=== PATIENT | female | born 1995 | race Caucasian/White ===

== ENCOUNTER 2018-10-25 03:46 | Emergency (ER) | payer BC, OTHER ==
[2018-10-25] MEDS ORDERED: ONDANSETRON 4 MG/2 ML VIAL ONE (04:44)
[2018-10-25] MEDS ORDERED: KETOROLAC 30 MG/ML INJ ONE (04:44)
[2018-10-25 04:51] LABS: Absolute Monocytes 0.5 K/uL (0.1-1.3); Absolute Neutrophil 2.9 K/uL (1.8-8.0); Basophils % 0.7 % (0-1.3); Eosinophils % 2.2 % (0-4.4); Hematocrit 38.8 % (36.0-45.0); Lymphocytes % 45.6 % (15.3-44.8); MPV 8.8 fL (7.6-11.3); Monocytes % 8.2 % (3.3-12.3); RBC Red Blood Cell Count 4.25 M/uL (3.86-4.86)
[2018-10-25 05:04] LABS: Albumin 3.7 g/dL (3.4-5.0); Bilirubin Direct 0.1 mg/dL (0-0.2); Bilirubin Total 0.4 mg/dL (0.2-1.0); Potassium 3.5 mmol/L (3.5-5.1); Protein, Total 7.9 g/dL (6.4-8.2)
[2018-10-25 06:07] LABS: Urine Blood 2+ (NEG); Urine Glucose NEGATIVE (NEG); Urine Protein 3+ (NEG); Urine Specific Gravity >1.030 (1.005-1.030); Urine pH 5.5 (5.0-7.0)
[2018-10-25 06:11] LABS: Urine Bacteria 20-50 /HPF (<20); Urine Culture Reflex Order REFLEXED
--- NOTE | 2018-10-25 06:48 | ER ---
Nurse's Notes [facility] Name: Sophy Otero Age: 23 yrs Sex: Female : 1995 Arrival Date: 10/25/2018 Time: 03:53 Bed 6 Private MD: out of town, doctor Diagnosis: Calculus of ureter Presentation: 10/25 04:04 Presenting complaint: Patient states: that she is having right mid sided abd pain. fc Denies any nausea, vomiting or diarrhea. Last BM this am at 0245. Has same episode last Monday and it lasted a few hrs and then went away. Transition of care: patient was not received from another setting of care. Onset of symptoms was October 25, 2018 at 02:30. Risk Assessment: Do you want to hurt yourself or someone else? Patient reports no desire to harm self or others. Initial Sepsis Screen: Does the patient meet any 2 criteria? HR > 90 bpm. No. Patient's initial sepsis screen is negative. Does the patient have a suspected source of infection? No. Patient's initial sepsis screen is negative. Care prior to arrival: None. 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 - Social history:: Smoking status: Patient/guardian denies using tobacco, Patient uses alcohol, occasionally. Patient/guardian denies using street drugs. - Ebola Screening: : Patient negative for fever greater than or equal to 101.5 degrees Fahrenheit, and additional compatible Ebola Virus Disease symptoms Patient denies exposure to infectious person Patient denies travel to an Ebola-affected area in the 21 days before illness onset. Screenin:07 Abuse screen: Denies threats or abuse. Nutritional screening: No deficits noted. jd3 Tuberculosis screening: No symptoms or risk factors identified. Fall Risk Ambulatory Aid- None/Bed Rest/Nurse Assist (0 pts). Gait- Normal/Bed Rest/Wheelchair (0 pts) Mental Status- Oriented to own ability (0 pts). Total Rodriguez Fall Scale indicates No Risk (0-24 pts). 04:08 Abuse screen: Denies threats or abuse. Nutritional screening: No deficits noted. fc Tuberculosis screening: No symptoms or risk factors identified. Fall Risk None identified. Assessment: 04:06 General: Appears in no apparent distress. uncomfortable, Behavior is calm, cooperative, jd3 appropriate for age. Pain: Complains of pain in right lower quadrant Pain currently is 9 out of 10 on a pain scale. Quality of pain is described as sharp. Neuro: Level of Consciousness is awake, alert, obeys commands, Oriented to person, place, time, situation, Appropriate for age. Cardiovascular: Capillary refill < 3 seconds Patient's skin is warm and dry. Respiratory: Airway is patent Respiratory effort is even, unlabored, Respiratory pattern is regular, symmetrical. GI: Abdomen is round non-distended, Bowel sounds present X 4 quads. Abd is soft Abdomen is tender to palpation in right lower quadrant. : No signs and/or symptoms were reported regarding the genitourinary system. EENT: No signs and/or symptoms were reported regarding the EENT system. Derm: Skin is intact, Skin is dry, Skin is normal, Skin temperature is warm. Musculoskeletal: Circulation, motion, and sensation intact. Range of motion: intact in all extremities. 05:10 Reassessment: Patient appears in no apparent distress at this time. Patient and/or jd3 family updated on plan of care and expected duration. Pain level reassessed. Patient is alert, oriented x 3, equal unlabored respirations, skin warm/dry/pink. Patient states feeling better. 06:20 Reassessment: Patient appears in no apparent distress at this time. Patient and/or jd3 family updated on plan of care and expected duration. Pain level reassessed. Patient is alert, oriented x 3, equal unlabored respirations, skin warm/dry/pink. 07:13 Reassessment: Patient appears in no apparent distress at this time. Patient and/or jd3 family updated on plan of care and expected duration. Pain level reassessed. Patient is alert, oriented x 3, equal unlabored respirations, skin warm/dry/pink. Vital Signs: 04:07 BP 129 / 96; Pulse 100; Resp 18; Temp 99.0(O); Pulse Ox 99% on R/A; Weight 86.18 kg (R); Height 5 ft. 4 in. (162.56 cm) (R); Pain 9/10; 06:20 BP 125 / 71; Pulse 78; Resp 17 S; Pulse Ox 98% on R/A; jd3 04:07 Body Mass Index 32.61 (86.18 kg, 162.56 cm) ED Course: 03:53 Patient arrived in ED. es 03:53 out of town, doctor is Private Physician. es 04:05 Aleks Chaves, RN is Primary Nurse. jd3 04:06 Triage completed. 04:07 Arm band placed on Patient placed in an exam room, on a stretcher. fc 04:08 Patient has correct armband on for positive identification. Bed in low position. Call light in reach. Pulse ox on. NIBP on. 04:09 Patient has correct armband on for positive identification. Bed in low position. Call [facility] light in reach. Side rails up X 1. Adult w/ patient. 04:12 Nadir Mathew MD is Attending Physician. gs 04:25 Inserted saline lock: 20 gauge in right antecubital area, using aseptic technique. jd3 Blood collected. 04:30 Radiology exam delayed due to test not completed at this time. eh 04:37 Lipase Sent. jd3 04:38 Hepatic Function Sent. jd3 04:38 CBC with Diff Sent. jd3 04:38 Basic Metabolic Panel Sent. jd3 05:[address] via wheelchair. eh 05:28 CT completed. Patient tolerated procedure well. Patient moved back from CT. eh 06:00 CT Stone Protocol In Process Unspecified. EDMS 06:46 Charmaine Mei MD is Referral Physician. gs 07:14 No provider procedures requiring assistance completed. IV discontinued, intact, jd3 bleeding controlled, No redness/swelling at site. Pressure dressing applied. Administered Medications: 04:38 Drug: TORadol 30 mg Route: IVP; Site: right antecubital; jd3 07:13 Follow up: Response: No adverse reaction jd3 04:38 Drug: Zofran 2 mg Route: IVP; Site: right antecubital; jd3 07:13 Follow up: Response: No adverse reaction jd3 Outcome: 06:47 Discharge ordered by . anuja 07:14 Discharged to home ambulatory, with family. jd3 07:14 Condition: stable 07:14 Discharge instructions given to patient, family, Instructed on discharge instructions, follow up and referral plans. medication usage, Demonstrated understanding of instructions, follow-up care, medications, Prescriptions given X 2. 07:14 Patient left the ED. jd3 Signatures: Dispatcher [employer] EDAlanna Aaron Ervin eh Chretien, Felicia, RN RN fc Nadir Mathew MD MD gs Davies, Jonathon, RN RN jd3
--- NOTE | 2018-10-25 06:48 | EDPHYS ---
Physician Documentation [facility] Name: Sophy Otero Age: 23 yrs Sex: Female : 1995 Arrival Date: 10/25/2018 Time: 03:53 Bed 6 Private MD: out of town, doctor ED Physician Nadir Mathew HPI: 10/25 06:44 This 23 yrs old Female presents to ER via Ambulatory with complaints of gs Abdominal Pain. 06:44 The patient presents with abdominal pain right lower quadrant. Onset: The gs symptoms/episode began/occurred 1 week(s) ago, and became persistent. The symptoms radiate to the right flank. Associated signs and symptoms: Pertinent negatives: fever. The symptoms are described as crampy, sharp. Modifying factors: The symptoms are alleviated by nothing, the symptoms are aggravated by nothing. Severity of pain: At its worst the pain was severe in the emergency department the pain has improved markedly. The patient has not experienced similar symptoms in the past. 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 - Social history:: Smoking status: Patient/guardian denies using tobacco, Patient uses alcohol, occasionally. Patient/guardian denies using street drugs. - Ebola Screening: : Patient negative for fever greater than or equal to 101.5 degrees Fahrenheit, and additional compatible Ebola Virus Disease symptoms Patient denies exposure to infectious person Patient denies travel to an Ebola-affected area in the 21 days before illness onset. ROS: 06:44 All other systems are negative. gs Exam: 06:44 Head/Face: Normocephalic, atraumatic. Eyes: Pupils equal round and reactive to light, gs extra-ocular motions intact. Lids and lashes normal. Conjunctiva and sclera are non-icteric and not injected. Cornea within normal limits. Periorbital areas with no swelling, redness, or edema. ENT: Nares patent. No nasal discharge, no septal abnormalities noted. Tympanic membranes are normal and external auditory canals are clear. Oropharynx with no redness, swelling, or masses, exudates, or evidence of obstruction, uvula midline. Mucous membranes moist. Neck: Trachea midline, no thyromegaly or masses palpated, and no cervical lymphadenopathy. Supple, full range of motion without nuchal rigidity, or vertebral point tenderness. No Meningismus. Chest/axilla: Normal chest wall appearance and motion. Nontender with no deformity. No lesions are appreciated. Cardiovascular: Regular rate and rhythm with a normal S1 and S2. No gallops, murmurs, or rubs. Normal PMI, no JVD. No pulse deficits. Respiratory: Lungs have equal breath sounds bilaterally, clear to auscultation and percussion. No rales, rhonchi or wheezes noted. No increased work of breathing, no retractions or nasal flaring. Back: No spinal tenderness. No costovertebral tenderness. Full range of motion. Skin: Warm, dry with normal turgor. Normal color with no rashes, no lesions, and no evidence of cellulitis. MS/ Extremity: Pulses equal, no cyanosis. Neurovascular intact. Full, normal range of motion. Neuro: Awake and alert, GCS 15, oriented to person, place, time, and situation. Cranial nerves II-XII grossly intact. Motor strength 5/5 in all extremities. Sensory grossly intact. Cerebellar exam normal. Normal gait. 06:44 Constitutional: The patient appears alert, awake. 06:44 Abdomen/GI: Palpation: mild abdominal tenderness, in the right lower quadrant, rebound tenderness, is not appreciated. Vital Signs: 04:07 BP 129 / 96; Pulse 100; Resp 18; Temp 99.0(O); Pulse Ox 99% on R/A; Weight 86.18 kg fc (R); Height 5 ft. 4 in. (162.56 cm) (R); Pain 9/10; 06:20 BP 125 / 71; Pulse 78; Resp 17 S; Pulse Ox 98% on R/A; jd3 04:07 Body Mass Index 32.61 (86.18 kg, 162.56 cm) MDM: 04:19 Patient medically screened. 06:44 Differential diagnosis: appendicitis, bowel obstruction, Ureterolithiasis. Data gs reviewed: vital signs, nurses notes. Data reviewed: lab test result(s), radiologic studies. Counseling: I had a detailed discussion with the patient and/or guardian regarding: the historical points, exam findings, and any diagnostic results supporting the discharge/admit diagnosis, lab results, radiology results, the need for outpatient follow up, a urologist. Response to treatment: the patient's symptoms have resolved after treatment, and as a result, I will discharge patient. 10/25 04:13 Order name: Urine Microscopic Only; Complete Time: 06:48 10/25 04:20 Order name: Basic Metabolic Panel; Complete Time: 06:48 10/25 04:20 Order name: CBC with Diff; Complete Time: 06:48 10/25 04:20 Order name: Hepatic Function; Complete Time: 06:48 10/25 04:20 Order name: Lipase; Complete Time: 06:48 10/25 05:08 Order name: Urine Dipstick--Ancillary (enter results) [facility] 10/25 04:13 Order name: Urine Test (obtain specimen); Complete Time: 05:05 10/25 04:13 Order name: Urine Dipstick-Ancillary (obtain specimen); Complete Time: 05:05 10/25 04:20 Order name: IV Saline Lock; Complete Time: 04:37 10/25 04:20 Order name: CT Stone Protocol 10/25 05:08 Order name: Urine --Ancillary (enter results) [facility] 10/25 06:12 Order name: Urine Culture [facility] 10/25 04:20 Order name: Labs collected and sent; Complete Time: 04:37 gs Administered Medications: 04:38 Drug: TORadol 30 mg Route: IVP; Site: right antecubital; jd3 07:13 Follow up: Response: No adverse reaction jd3 04:38 Drug: Zofran 2 mg Route: IVP; Site: right antecubital; jd3 07:13 Follow up: Response: No adverse reaction jd3 Disposition: 10/25/18 06:47 Discharged to Home. Impression: Calculus of ureter. - Condition is Stable. - Discharge Instructions: Kidney Stones. - Prescriptions for Tylenol- Codeine #4 300-60 mg Oral Tablet - take 1 tablet by ORAL route every 6 hours As needed; 12 tablet. Keflex 500 mg Oral Capsule - take 1 capsule by ORAL route every 12 hours for 10 days; 20 capsule. - Work release form, Medication Reconciliation Form, Thank You Letter, Antibiotic Education, Prescription Opioid Use form. - Follow up: Charmaine Mei MD; When: 2 - 3 days; Reason: Re-evaluation by your physician. Signatures: Dispatcher [employer] EDMS Pepper Robles RN RN fc Nadir Mathew MD MD gs Davies, Jonathon, RN RN jd3 Corrections: (The following items were deleted from the chart) 07:14 06:47 10/25/2018 06:47 Discharged to Home. Impression: Calculus of ureter. Condition is jd3 Stable. Forms are Medication Reconciliation Form, Thank You Letter, Antibiotic Education, Prescription Opioid Use. Follow up: Charmaine Mei; When: 2 - 3 days; Reason: Re-evaluation by your physician. gs
--- NOTE | 2018-10-25 11:31 | RAD REPORT ---
EXAM DESCRIPTION: CT - Stone Protocol - 10/25/2018 6:35 am CLINICAL HISTORY: The patient is 23 years old and is Female; ABD PAIN TECHNIQUE: Axial computed tomography images of the abdomen and pelvis without intravenous contrast. Sagittal and coronal reformatted images were created and reviewed. This CT exam was performed usi ng one or more of the following dose reduction techniques: automated exposure control, adjustment o f the mA and/or kV according to patient size, and/or use of iterative reconstruction technique. COMPARISON: No relevant prior studies available. FINDINGS: Lung bases: Unremarkable. No mass. No consolidation. ABDOMEN: Liver: Homogeneous without focal mass. Gallbladder and bile ducts: The gallbladder is contracted. Pancreas: Unremarkable. No ductal dilation. Spleen: A splenule is present within the left upper quadrant. The spleen is unremarkable. Adrenals: Unremarkable. No mass. Kidneys and ureters: Mild right hydronephrosis and proximal hydroureter is present secondary to a 5 mm proximal right ureteral calculus. Mild edema of the right kidney with associated perinephric stranding is present. The left ki dney is normal. Stomach and bowel: The stomach is minimally fluid filled. The small bowel is normal in caliber. Stool is present throughout the colon. There is no mucosal thickening or evidence of bowel obstructio n. PELVIS: Appendix: The appendix is normal in caliber without surrounding inflammation. Bladder: The bladder is nearly empty. No stones. Reproductive: Unremarkable as visualized. ABDOMEN and PELVIS: Intraperitoneal space: Trace free fluid is present within the pelvis which is likely physiologic . No free air. Bones/joints: No acute fracture. Soft tissues: The soft tissues are normal. Vasculature: Several calcified phleboliths are present within the pelvis. No abdominal aortic aneurysm. Lymph nodes: Unremarkable. No enlarged lymph nodes. IMPRESSION: Mild right hydronephrosis and proximal hydroureter is present secondary to a 5 mm proxim al right ureteral calculus. Electronically signed by: Angelina Leonard MD 10/25/2018 6:09 AM CDT Due to temporary technical issues with the PACS/Fluency reporting system, reports are being signed by the in house radiologist as a courtesy to ensure prompt reporting. The interpreting radiologist is f ully responsible for the content of the report.
== END 2018-10-25 07:14 | disposition home or self-care (01) ==
LOC: ER 03:46
DX: N20.1 Calculus of ureter (principal)
CPT/HCPCS: 36415; 74176; 76377; 80048; 80076; 81003; 81015; 81025; 83690; 85025; 87086; 87088; 96374; 96375; 99284; J2405